=== PATIENT | female | born 1960 | race Hispanic/Latino ===

== ENCOUNTER → 2019-07-16 | Day surgery (SDC) | payer BC ==
[2019-07-14 10:29] LABS: BASOPHILS # (AUTO) 0.1 (0.0-0.1); BASOPHILS % 0.7 % (0.0-1.0); EOSINOPHILS # (AUTO) 0.1 (0.0-0.4); EOSINOPHILS % 1.3 % (0.0-6.0); HEMATOCRIT 40.2 % (34.2-44.1); HEMOGLOBIN 13.2 g/dL (12.0-16.0); LYMPHOCYTES # (AUTO) 2.2 (1.0-3.2); LYMPHOCYTES % 29.7 % (18.0-39.1); MEAN CORPUSCULAR HEMOGLOBIN 31.4 pg (28-32); MEAN CORPUSCULAR HGB CONC 32.8 g/dL (31-35); MEAN CORPUSCULAR VOLUME 95.7 fL (81-99); MONOCYTES # (AUTO) 0.5 (0.2-0.8); MONOCYTES % 6.4 % (4.4-11.3); NEUTROPHILS # (AUTO) 4.7 (2.1-6.9); NEUTROPHILS % 61.8 % (38.7-80.0); PLATELET COUNT 344 x10e3/uL (140-360); RED CELL DISTRIBUTION WIDTH 12.9 % (11.7-14.4)
[2019-07-14 10:49] LABS: ANION GAP 17.5 mmol/L (8-16); BLOOD UREA NITROGEN 17 mg/dL (7-26); BUN/CREATININE RATIO 20 (6-25); CALCIUM 10.5 mg/dL (8.4-10.2); CARBON DIOXIDE 24 mmol/L (22-29); CHLORIDE 104 mmol/L (98-107); CREATININE, SERUM 0.83 mg/dL (0.57-1.11); EST GLOMERULAR FILTRATION RATE > 60 ML/MIN (60-); GLUCOSE 87 mg/dL (74-118); POTASSIUM 4.5 mmol/L (3.5-5.1); SODIUM 141 mmol/L (136-145)
[2019-07-14 10:51] LABS: INR 0.93
[2019-07-14 10:52] LABS: PARTIAL THROMBOPLASTIN TIME 30.4 seconds (23.8-35.5)
--- NOTE | 2019-07-14 11:07 | Diagnostic Imaging Report ---
EXAMINATION: CHEST 2 VIEWS INDICATION: Pre-operative COMPARISON: None FINDINGS: LINES/TUBES:None LUNGS:The lungs are well-inflated. No focal consolidation or pulmonary edema. PLEURA:No pleural effusion or pneumothorax. MEDIASTINUM:The cardiomediastinal silhouette appears normal in size and shape. BONES/SOFT TISSUES:No acute osseous injury. ABDOMEN:No free air under the diaphragm. IMPRESSION: No focal pneumonia or pulmonary edema. Signed by: Johnny Bowman MD on 07/14/2019 11:04 AM
--- NOTE | 2019-07-15 18:59 | History and Physical ---
CHIEF COMPLAINT: Ms. Beck is a pleasant 58-year-old woman, who is admitted at this time for further evaluation of chest discomfort and shortness of breath. HISTORY OF PRESENT ILLNESS: The patient performed a stress Cardiolite in my office in May. This suggested a moderate area of inferior ischemia and normal left ventricular function. Her pulmonary function studies were relatively unremarkable. PAST MEDICAL HISTORY: Significant for hypertension, hyperlipidemia, and asthma. PAST SURGICAL HISTORY: She has had previous knee surgery in 2011. MEDICATIONS: Recent home medications have been Advair 2 puffs twice a day, aspirin 81 mg daily, losartan 100 mg daily, atorvastatin 10 mg daily, Xopenex inhaler as needed, and valacyclovir 500 mg once a day. FAMILY HISTORY: Father at age 84, cause is not noted. Mother with stroke and heart disease. PERSONAL AND SOCIAL HISTORY: The patient started smoking at age 8, but stopped smoking 3 years ago when she was 55 years of age, totaling more than 46 years of smoking. PHYSICAL EXAMINATION: GENERAL: At this time shows a pleasant unremarkable woman, who is comfortable. VITAL SIGNS: Height 5 feet tall, weighing 152 pounds, and blood pressure 118/72. HEAD, EYES, EARS, NOSE, AND THROAT: Unremarkable. NECK: No jugular venous distention. No bruits. THORAX: Heart sounds S1 and S2 are equal. No murmurs. LUNGS: Clear. ABDOMEN: Normal bowel sounds. Nontender. EXTREMITIES: No cyanosis, clubbing, or edema. ASSESSMENT: 1. Chest discomfort and shortness of breath, suggested possibly coronary ischemia by abnormal Cardiolite. 2. History of hypertension. 3. History of hyperlipidemia. 4. History of asthma. PLAN: We will perform left heart catheterization with further management based on results of the study. MD MUNDO Patel/JEWELS /[id number] cc: Waleska Acevedo MD
[2019-07-16] VITALS (10 sets, daily range): BP systolic 143–164; BP diastolic 68–93
[~2019-07-16] VITALS: Ht 152.4 cm; Wt 68.0 kg
[~2019-07-16] MED LIST: ADVAIR 250-501 EACH INH; ASPIR 8181 MG PO; ATORVASTATIN CA10 MG PO; FENTANYL CITRATE/PF 100MCG/2 ML INJ ONE; GLUCOSAMINE1000 MG PO; HEPARIN SOD/SOD CHLORIDE 2,000 ML ONE; IOPAMIDOL 370 MG/ML 200 ML INFUS..BTL INJ ONE; LIDOCAINE HCL 2% LOCAL 20 ML VIAL ONE; LOSARTAN POTAS100 MG PO; MIDAZOLAM HCL 2 MG/2 ML VIAL ONE; NITROGLYCERIN0.4 MG SL; OMEGA 3 FISH O1 EACH PO; SODIUM CHLORIDE 0.9% 1000ML 1,000 ML ONE; VALACYCLOVIR500 MG PO; XOPENEX0.63 MG/3 NEB
--- OUTSIDE RECORDS SUMMARY | 2019-07-16 07:27 | XMS REPORT | Summary of Care ---
Author Author Noel Ortega M.A.senhua Cnostantino Unknown Address Unknown Phone Unavailable Care Team Providers Care Insurance Claims Processor Name Role Phone LINWOOD PASCAL M.D. Unavailable LINWOOD PASCAL MD Unavailable Unavailable Unavailable Unavailable Functional Status Name Dates Details Functional status health issues are not documented Status: Name Dates Details Cognitive status health issues are not documented Status: Problems Name Dates Details Trochanteric bursitis of left hip (726.5, M70.62) Status: Active Iliotibial band tendinitis of left side (728.89, M76.32) Status: Active Sacroiliitis (720.2, M46.1) Status: Active Osteoarthritis of both knees (715.96, M17.0) Status: Active Right wrist pain (719.43, M25.531) Status: Active De Quervain's tenosynovitis, right (727.04, M65.4) Status: Active Ganglion of right wrist (727.41, M67.431) Status: Active Medications Name Dates Details Xopenex HFA AERO Active [place] 5-325 MG Oral Tablet * Refills: 0 Active traMADol HCl - 50 MG Oral Tablet * Refills: 0 Active Triamcinolone Acetonide SUSP Injection, triamCinolone acetonide, per 10mg, left trochanteric bursa, 10/25/2014 * Refills: 0 Active Meloxicam 15 MG Oral Tablet TAKE 1 TABLET DAILY * Quantity: 14 Refills: 0 LINWOOD PASCAL M.D. * Start : 18-Dec-2018 Active Omeprazole 40 MG Oral Capsule Delayed Release TAKE 1 CAPSULE DAILY * Quantity: 14 Refills: 0 LINWOOD PASCAL M.D. 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, M47.816) Status: Resolved History of Elevated cholesterol (272.0, E78.00) Status: Resolved History of EMG (V15.89, Z92.89) Status: Resolved History of gastric ulcer (V12.79, Z87.19) Status: Resolved History of Hip pain, left (719.45, M25.552) Status: Resolved History of History of colonoscopy (V45.89, Z98.890) Status: Resolved History of hypertension (V12.59, Z86.79) Status: Resolved History of Lumbar radiculopathy (724.4, M54.16) Status: Resolved History of mammogram (V15.89, Z92.89) Status: Resolved History of MRI (V15.89, Z92.89) Status: Resolved History of Spinal stenosis of lumbar region (724.02, M48.061) Status: Resolved History of Vaginal Pap smear (V76.47, Z12.72) Status: Resolved Procedures Procedure Dates Details History of Arthroscopy Knee Right Completed Immunization Name Dates Details Immunizations not documented Family History Name Dates Details Family history of general anesthesia reaction (V19.8, Z84.89) Status: Active Family history of cardiac disorder (V17.49, Z82.49) Status: Active Family history of hypertension (V17.49, Z82.49) Status: Active Family history of asthma (V17.5, Z82.5) Status: Active Family history of coagulation disorder (V18.3, Z83.2) Status: Active Social History Name Dates Details Unknown if ever smoked Vital Signs Date Test Result Details No Known Vitals to report Results Date Description Value Details [id number] [U] XRAY WRIST MIN 3 VWS RIGHT [id number] XR WRIST MIN 3 VWS RIGHT Images acquired, not reported on this accession number. Plan of Care Name Dates Details Planned Observations Planned Goals not documented Interventions Provided Medication Changes* Meloxicam 15 MG Oral Tablet - Start * Omeprazole 40 MG Oral Capsule Delayed Release - Start Labs/Procedures/Imaging* [U] XRAY WRIST MIN 3 VWS RIGHT [id number]; Done: 18 Dec 2018 Instructions Name Dates Details Instructions not documented Encounters Appointment; LINWOOD PASCAL M.D. Encounter Diagnosis: Problem not documented On: 18-Dec-2018 14:00
--- OUTSIDE RECORDS SUMMARY | 2019-07-16 07:27 | XMS REPORT ---
Author Author [facility] Organization [facility] Address Unknown Phone Unavailable Care Team Providers Care Knockdown Worker Name Role Phone Robert ROWLAND Unavailable Unavailable Payers Payer Name Policy Type Policy Number Effective Date Expiration Date Problems This patient has no known problems. Allergies, Adverse Reactions, Alerts This patient has no known allergies or adverse reactions. Medications This patient has no known medications. Encounters Start Date/Time End Date/Time Encounter Type Admission Type Attending [facility] Facility Care Department Encounter ID 2019-04-01 05:41:00 2019-04-01 05:41:00 Emergency E [id number] Results Test Description Test Time Test Comments Text Results Atomic Results Result Comments CHEST 2 VIEWS 2019-07-14 11:02:00 [place] [address] Patient Name: JOSE VILLATORO MR #: [id number] : 1960 Age/Sex: 58/F Req #: [id number] Adm Physician: Ordered by: DIMAS ROWLAND MD Report #: [id number] Location: RN PLASTICS Room/Bed: Procedure: [id number] DX/CHEST 2 VIEWS Exam Date: 07/14/19 Exam Time: 1040 REPORT STATUS: Signed EXAMINATION: CHEST 2 VIEWS INDICATION: Pre-operative COMPARISON: None FINDINGS: LINES/TUBES:None LUNGS:The lungs are well-inflated. No focal consolidation or pulmonary edema. PLEURA:No pleural effusion or pneumothorax. MEDIASTINUM:The cardiomediastinal silhouette appears normal in size and shape. BONES/SOFT TISSUES:No acute osseous injury. ABDOMEN:No free air under the diaphragm. IMPRESSION: No focal pneumonia or pulmonary edema. Signed by: Travon Joseph MD on 07/14/2019 11:04 AM Dictated By: TRAVON JOSEPH MD Transcribed By: AGGIE SERVIN on 07/14/192 COPY TO: DIMAS ROWLAND MD - XR CHEST 2 V 2019-05-27 18:35:00 FAX: Waleska Downing MD [phone] [place]: St: REG FAX: Linnette Pollock MD [phone] Name: JOSE VILLATORO [facility] : 1960 Age/S: 58/F [address] [facility] Unit #: [id number] Loc: [place] [address] Phys: Linnette Rowland MD Acct: [id number] Dis Date: Status: REG CLI PHONE #: [phone] Exam Date: 05/27/20191746 FAX #: [phone] Reason: SOB EXAMS: CPT CODE: [id number] XR CHEST 2 V [id number] EXAM: Chest X-ray, 2 views; CLINICAL HISTORY: Shortness of breath; FINDINGS: The lungs are clear, no infiltrates, no edema; no effusions; no pneumothorax; normal cardiomediastinal silhouette. IMPRESSION: Normal chest x-ray. Moderate S- shaped scoliosis of the thoracolumbar spine. at 1835 Reported and signed by: Simon Peng M.D. CC: Waleska Acevedo MD; Linnette Rowland MD Technologist: ALENA Avitia) Trnscrd Date/Time/By: 05/27/2019 (1835) : By: [email or web address] Orig Print D/T: S: 05/27/2019 (3058) PAGE 1 Signed Report
--- NOTE | 2019-07-16 10:00 | NUR ---
1000 Bedside report received from GIRMA Campa. Alert oriented and appropriate, PERRLA, respirations even and unlabored to room air. Pulses x4 extremities equal and strong. Pedal pulses PT/DP X4 and marked. Cap fill brisk < 3 sec. Rt groin 4fr manual pull with stasis 0915 an down time till 115p and dc home if remains stable Skin warm and dry integrity appears D/I. IV 20g to left 0.9NS at 100cchr via iv controller, presents healthy w/o s/s of infiltration or complaint. Abdomen soft and supple. pt offered toileting, denies need to urinate or defecate. No personal affects with patient. Family daughter at bedside Rosa . Pt and family verbalizes understanding of POC. Currently w/o complaint of pain or need. ds/girma
--- NOTE | 2019-07-16 13:14 | NUR ---
1315 Pt needs to void Necessity to urinate in bathroom facility Rt Groin site w/o any issues pain,pallor,pressure.Ok to ready for dc per Head nurse assisted to bathroom tolerated well.Dresed for dc. Pt meets DC criteria. rt groin assessed for s/s of complication and presence of hematoma. Skin warm, dry, no discolor, and pulses present. IV removed from left hand Distal tip appears intact. VS WNL. Pt denies pain, sob, or need at this time. Daughter at bedside. Review of discharge paperwork and follow up instructions. verbalized understanding. Pt to wheelchair and transported to front of hospital. Transferred to private vehicle under own strength w/o incident with DC paperwork in hand. - jacob/rn
--- NOTE | 2019-07-16 22:27 | Operative Report ---
DATE OF PROCEDURE: 07/16/2019 SURGEON: Sohail Rowland MD PROCEDURE: Cardiac cath report. INDICATION: Shortness of breath and abnormal Cardiolite. PROCEDURE IN DETAIL: The patient was brought to the skilled labor in a fasting, partially sedated state, premedicated with 1 mg Versed. The right groin was prepped and scrubbed with 2% xylocaine. 4-Anguillan sheath placed in the right common femoral artery and cardiac cath performed with 4-Anguillan pigtail and 4-Anguillan right and left Mark catheters. Inspection of films shows the right coronary to be dominant with no significant stenosis. The left main is a small ramus, circumflex OM1 and OM2 are all unremarkable. The proximal LAD is unremarkable. There is a minimal plaquing after the 1st diagonal, probably about 30% luminal stenosis. Flow is brisk and unremarkable. The left ventricular function appears to be normal with estimated ejection fraction of 60%. No mitral regurgitation was identified. Then, the catheter was removed, pressure held. She has returned to her room in stable condition. FINAL IMPRESSION: 1. Insignificant coronary artery disease with mild 30% luminal stenosis in the LAD. 2. Normal left ventricular function with EF of about 60%. 3. No mitral regurgitation. 4. No blood loss. No complication. RECOMMENDATIONS: For medical management. MD MUNDO Patel/JEWELS /[id number]
--- NOTE | 2019-07-17 05:03 | Discharge Summary ---
HOSPITAL COURSE: Ms. Beck is a pleasant 58-year-old woman with exertional shortness of breath, long history of smoking, and abnormal Cardiolite. She had left heart catheterization performed, which showed insignificant coronary artery disease and normal left ventricular function. She previously had pulmonary function studies done, which showed relatively good pulmonary function. She was monitored for 4 hours after catheterization and discharged home to continue the same medication, to avoid smoking and to follow up my office in 10 days, to avoid lifting. DISCHARGE DIAGNOSES: 1. Insignificant coronary artery disease. 2. Normal left ventricular function. MD MUNDO Patel/JEWELS /[id number]
== END | disposition home or self-care (01) ==
LOC: CATH LAB 07:25
PROVIDERS: ATTEND Internal Medicine Cardiovascular Disease
DX: I25.10 Atherosclerotic heart disease of native coronary artery without angina pectoris (principal); R94.39 Abnormal result of other cardiovascular function study; E78.2 Mixed hyperlipidemia; I10 Essential (primary) hypertension; J45.909 Unspecified asthma, uncomplicated; Z01.810 Encounter for preprocedural cardiovascular examination; Z01.812 Encounter for preprocedural laboratory examination; Z01.818 Encounter for other preprocedural examination; Z79.82 Long term (current) use of aspirin; Z87.891 Personal history of nicotine dependence; Z82.49 Family history of ischemic heart disease and other diseases of the circulatory system; Z82.3 Family history of stroke
CPT/HCPCS: 36415; 71046; 80048; 85025; 85610; 85730; 86850; 86900; 93005; 93458; C1766; J2001; J2250; J3010; J7030; Q9967; 99152

== ENCOUNTER → 2020-03-28 | Outpatient (RCR) | payer BC ==
[~2020-03-28] MED LIST changes: -FENTANYL CITRATE/PF 100MCG/2 ML INJ ONE; -HEPARIN SOD/SOD CHLORIDE 2,000 ML ONE; -IOPAMIDOL 370 MG/ML 200 ML INFUS..BTL INJ ONE; -LIDOCAINE HCL 2% LOCAL 20 ML VIAL ONE; -MIDAZOLAM HCL 2 MG/2 ML VIAL ONE; -SODIUM CHLORIDE 0.9% 1000ML 1,000 ML ONE
== END ==
LOC: PT 03-22 15:07
PROVIDERS: ATTEND Specialist
DX: M17.11 Unilateral primary osteoarthritis, right knee (principal); M25.561 Pain in right knee; M62.81 Muscle weakness (generalized); R26.89 Other abnormalities of gait and mobility